=== PATIENT | female | born 1945 | race African-American/Black ===

== ENCOUNTER 2017-02-04 11:17 | Emergency (ER) | payer OTHER, MEDICAID ==
[~2017-02-04] VITALS: Ht 165.1 cm; Wt 95.0 kg
[~2017-02-04 11:17] MED LIST: ATOR20TA PO; MELO-58 PO; PRAS10TA6 PO
[2017-02-04] MEDS ORDERED: SODIUM CHLORIDE 0.9% 1,000 ML IV ONE (11:32)
[2017-02-04] MEDS ORDERED: MORPHINE SULFATE 4 MG/ML CPJ (NOT FOR IM USE) IV ONE (11:45)
[2017-02-04] MEDS ORDERED: TETANUS, DIPHTHERIA, PERTUSSIS VAC/PF 0.5ML (>7YR OLD) IM ONE (11:45)
[2017-02-04] MEDS ORDERED: ONDANSETRON HCL 4MG/2ML VIAL IV ONE (11:45)
[2017-02-04 11:52] LABS: BASOPHILS % 1.1 % (0.0-2.0); HEMATOCRIT. 38.4 % (36.0-48.0); HEMOGLOBIN. 12.9 g/dL (12.0-16.0); LYMPHOCYTES % 13.7 % (20.0-50.0); MEAN CORPUSCULAR HEMOGLOBIN 30.2 pg (28.0-32.0); MEAN CORPUSCULAR VOLUME 89.6 fL (81.0-99.0); MEAN PLATELET VOLUME 7.8 fl (7.4-10.4); MONOCYTES % 7.7 % (2.0-8.0); NEUTROPHILS % 76.5 % (40.0-76.0); PLATELET 239 x1000/uL (130-400); RED BLOOD CELL COUNT 4.28 mill/uL (4.2-5.4); RED CELL DISTRIBUTION WIDTH 15.9 % (11.6-14.6)
[2017-02-04 11:57] LABS: CHLORIDE 114 mEq/L (98-107)
[2017-02-04 12:06] LABS: CARBON DIOXIDE 22 mEq/L (21-32)
[2017-02-04 12:11] LABS: PROTHROMBIN TIME 10.7 sec
[2017-02-04 13:08] VITALS: BP 164/86
== END 2017-02-04 13:22 | disposition short-term general hospital (02) ==
LOC: ER 11:17
DX: T24.301A Burn of third degree of unspecified site of right lower limb, except ankle and foot, initial encounter (principal); T24.302A Burn of third degree of unspecified site of left lower limb, except ankle and foot, initial encounter; T25.321A Burn of third degree of right foot, initial encounter; T25.322A Burn of third degree of left foot, initial encounter; T31.0 Burns involving less than 10% of body surface; T24.201A Burn of second degree of unspecified site of right lower limb, except ankle and foot, initial encounter; T24.202A Burn of second degree of unspecified site of left lower limb, except ankle and foot, initial encounter; I25.10 Atherosclerotic heart disease of native coronary artery without angina pectoris; I25.2 Old myocardial infarction; I69.354 Hemiplegia and hemiparesis following cerebral infarction affecting left non-dominant side; F17.210 Nicotine dependence, cigarettes, uncomplicated; M32.9 Systemic lupus erythematosus, unspecified; E11.9 Type 2 diabetes mellitus without complications; Z98.61 Coronary angioplasty status; Z90.49 Acquired absence of other specified parts of digestive tract; Z88.0 Allergy status to penicillin; Z88.2 Allergy status to sulfonamides; X10.2XXA Contact with fats and cooking oils, initial encounter; Y93.89 Activity, other specified; Y92.010 Kitchen of single-family (private) house as the place of occurrence of the external cause
CPT/HCPCS: 36415; 80053; 85025; 85610; 90471; 90715; 96361; 96374; 96375; 99285; J2270; J2405; J7030; X7700; Z7610